=== PATIENT | male | born 1990 | race Hispanic/Latino ===

== ENCOUNTER 2023-11-20 10:10 | Emergency (ER) | payer SELFPAY ==
[~2023-11-20] VITALS: Ht 167.6 cm; Wt 79.4 kg
[2023-11-20 10:18] VITALS: PULSE 78; RESP 19; TEMP 97.9; O2SAT 98
[2023-11-20] MEDS: KETOROLAC TROMETHAMINE 60 MG/2 ML VIAL IM ONE (10:46)
[2023-11-20] MEDS ORDERED: CYCLOBENZAPRINE10 MG PO (11:04)
== END 2023-11-20 11:19 | disposition home or self-care (01) ==
LOC: ER 10:18
DX: M54.32 Sciatica, left side (principal)
CPT/HCPCS: 99283; J1885